=== PATIENT | male | born 1995 | race Caucasian/White ===

== ENCOUNTER 2016-06-30 15:24 | Emergency (ER) | payer OTHER ==
[2016-06-30] MEDS ORDERED: KETOROLAC 30 MG/ML VIAL (J1885) As Ordered ONE (15:44)
[2016-06-30] MEDS ORDERED: ONDANSETRON 4MG/2ML VIAL (J2405) As Ordered ONE (15:44)
[2016-06-30] MEDS ORDERED: MORPHINE 4 MG/ML 1ML SYRINGE As Ordered ONE (15:44)
[2016-06-30 16:01] LABS: BASO % 0.5 % (0.0-1.0); LARGE UNSTAINED CELL # 0.2 K/mm3 (0.0-0.4); LARGE UNSTAINED CELL % 3.5 % (0.0-4.0); LYMPH # 1.6 K/mm3 (1.5-6.5); LYMPH % 28.6 % (24.0-44.0); MEAN CORPUSCULAR HEMOGLOBIN 27.3 pg (27.0-33.0); MEAN CORPUSCULAR HGB CONC 32.7 g/dl (32.0-36.5); MEAN CORPUSCULAR VOLUME 83.5 fl (80.0-96.0); MONO # 0.4 K/mm3 (0.0-0.8); MONO % 7.2 % (0.0-5.0); NEUTROPHILS # 3.2 K/mm3 (1.8-7.7); NEUTROPHILS % 59.1 % (36.0-66.0); PLATELET COUNT, AUTOMATED 150 k/mm3 (150-450); RED CELL DISTRIBUTION WIDTH 12.1 % (11.5-14.5); WHITE BLOOD COUNT 5.4 K/mm3 (4.0-10.0)
--- NOTE | 2016-06-30 16:24 | REP ---
CT abdomen pelvis without IV and oral contrast: There are no comparisons. There is no hydronephrosis. No renal, ureteral or bladder calculi. There is no perinephric stranding. The visualized lung dominguez are unremarkable. The unenhanced hepatic parenchyma, gallbladder, pancreas and spleen are unremarkable. The adrenals, abdominal aorta and bowel are unremarkable. The mesentery is unremarkable. Pelvis: The appendix cannot be identified, however there is no pericecal inflammation or abscess. There is no ascites or adenopathy. The pelvic bowel loops are unremarkable. The bladder is unremarkable. Impression: There is no obstructive uropathy. Otherwise, negative CT of the abdomen and pelvis. Signed by Nabil Krishnan MD 06/30/2016 04:16 P
[2016-06-30] MEDS ORDERED: MORPHINE 2 MG/ML 1ML SYRINGE As Ordered ONE (17:04)
[2016-06-30 17:11] LABS: ALBUMIN 3.2 GM/DL (3.2-5.2); ALBUMIN/GLOBULIN RATIO 1.14 (1.00-1.93); ALKALINE PHOSPHATASE 68 U/L (45-117); ALT/SGPT 33 U/L (12-78); AMYLASE 30 U/L (25-115); ANION GAP 8 MEQ/L (8-16); AST/SGOT 25 U/L (15-37); BILIRUBIN,DIRECT < 0.1 MG/DL (0.0-0.2); BILIRUBIN,TOTAL 0.3 MG/DL (0.2-1.0); BLOOD UREA NITROGEN 15 MG/DL (7-18); CALCIUM LEVEL 7.9 MG/DL (8.5-10.1); CARBON DIOXIDE LEVEL 24 MEQ/L (21-32); CHLORIDE LEVEL 110 MEQ/L (98-107); CREATININE FOR GFR 0.89 MG/DL (0.70-1.30); GLUCOSE, FASTING 77 MG/DL (70-105); POTASSIUM SERUM 3.9 MEQ/L (3.5-5.1); SODIUM LEVEL 142 MEQ/L (136-145)
--- NOTE | 2016-06-30 19:19 | EDDOCDS ---
Physician Documentation [facility] Name: Frank Hilliard Age: 21 yrs Sex: Male : 1995 Arrival Date: 06/30/2016 Time: 15:24 Bed 18 [facility] Disposition: 06/30/16 18:43 Discharged to Home/Self Care. Impression: Abdominal and pelvic pain. - Condition is Stable. - Discharge Instructions: Abdominal Pain, Adult. - Prescriptions for Naprosyn 500 mg Oral Tablet - take 1 tablet by ORAL route 2 times per day take with food; 30 tablet. Zofran 4 mg Oral Tablet - take 1 tablet by ORAL route 4 times per day As needed; 10 tablet. - Medication Reconciliation, Local Pharmacy Hours form. - Follow up: [facility] [place]; When: 2 - 3 days; Reason: Recheck today's complaints, Continuance of care. - Problem is an ongoing problem. - Symptoms have improved. Historical: - Allergies: no known allergies; - Home Meds: 1. nausea medication Unknown Unknown prn pt unsure of medicaiton name (Last dose: 06/29/2016 22:00) 2. pre workout Unknown Unknown pt uses before workouts. - PMHx: none; - PSHx: none; - Social history: Smoking status: Patient states former smoker of tobacco. No barriers to communication noted, The patient speaks fluent Kinyarwanda. - Family history: No immediate family members are acutely ill. - : The pt / caregiver states he / she is not on anticoagulants. Home medication list is obtained from the patient. - Exposure Risk Screening:: None identified. Vital Signs: 06/30 15:33 BP 118 / 60; Pulse 72; Resp 17; Temp 98.9(TE); Pulse Ox 97% ; Weight 77.11 kg / 170 lbs mb9 (R); Height 5 ft. 10 in. (177.80 cm); Pain 10/10; 16:40 Pain 6/10; mb9 17:40 Pain 4/10; mb9 19:10 BP 107 / 54 (auto/); mb9 19:12 Pulse 58 MON; Resp 18; Temp 96.8(O); Pulse Ox 96% ; mb9 15:33 Body Mass Index 24.39 (77.11 kg, 177.80 cm) mb9 MDM: 15:40 Ondansetron 4 mg IVP once ordered. ke 15:40 ketorolac 30 mg IVP once ordered. ke 15:40 IV Saline Lock ordered. ke 15:40 Undress patient appropriately for examination ordered. ke 15:40 morphine 4 mg IVP once ordered. ke 15:42 Amylase Ordered. EDMS 15:42 Basic Metabolic Profile Ordered. EDMS 15:42 CBC with Diff Ordered. EDMS 15:42 Lipase Ordered. EDMS 15:42 Liver Profile Ordered. EDMS 15:42 Urinalysis Ordered. EDMS 15:42 Urine Culture Ordered. EDMS 15:43 CT ABD & PELVIS: No Contrast Ordered. EDMS 15:43 NOTHING BY MOUTH+DIET ordered. EDMS 16:17 Financial registration complete. zo 16:18 [facility] Payment Agreement was scanned into [employer] and attached to record. zo 16:58 CBC with Diff Reviewed. ke 16:58 CT ABD & PELVIS: No Contrast Reviewed. ke 16:59 morphine 2 mg IVP once ordered. ke 16:59 NS 0.9% 1000 ml IV at bolus once ordered. ke 17:39 Basic Metabolic Profile Reviewed. ke 17:39 Liver Profile Reviewed. ke 17:39 Amylase Reviewed. ke 17:39 Lipase Reviewed. ke 18:11 Urinalysis Reviewed. ke Administered Medications: 15:56 Drug: Ondansetron 4 mg [ondansetron HCl 2 mg/mL intravenous solution (2 mL)] Route: mb9 IVP; Site: left antecubital; 17:41 Follow up: Response: Nausea is resolved mb9 15:56 Drug: ketorolac 30 mg [ketorolac 30 mg/mL (1 mL) injection solution (1 mL)] Route: IVP; mb9 Site: left antecubital; 16:40 Follow up: Response: Pain is decreased mb9 15:56 Drug: morphine 4 mg [morphine 4 mg/mL intravenous cartridge (1 mL)] Route: IVP; Site: mb9 left antecubital; 16:40 Follow up: Pain 6/10 Adult; Response: Confirmed pt not driving.; Pain is decreased mb9 17:10 Drug: morphine 2 mg [morphine 2 mg/mL intravenous cartridge (1 mL)] Route: IVP; Site: mb9 left antecubital; 17:40 Follow up: Pain 4/10 Adult; Response: Confirmed pt not driving.; Pain is decreased mb9 17:11 Drug: NS 0.9% 1000 ml [sodium chloride 0.9 % intravenous solution] Route: IV; Rate: mb9 bolus; Site: left antecubital; 17:39 Follow up: IV Intake: 1000ml mb9 Signatures: Dispatcher [employer] EDFranklin Miller, MANAGER PROCESS MANAGER PROCESS Sunita Colon MichaelRN RN mb9 The chart was reviewed and I authenticate all verbal orders and agree with the evaluation and treatment provided.Corrections: (The following items were deleted from the chart) 17:40 16:59 Straight cath ordered. jeff wheat9 Attachments: 16:18 [facility] Payment Agreement jovanni MTDD
--- NOTE | 2016-06-30 19:20 | EDDOCDS ---
Nurse's Notes [facility] Name: Frank Arminda Age: 21 yrs Sex: Male : 1995 Arrival Date: 06/30/2016 Time: 15:24 Bed 18 Private MD: WIROBERTO [place] Diagnosis: Abdominal and pelvic pain Presentation: 06/30 15:27 Presenting complaint: EMS states: "Nausea and vomiting since Sunday. They sent him mb9 here to rule out appendicitis. He is Tender to even mild palpation". Risk factors: the patient reports not having a history of previous torsion. Care prior to arrival: Medications administered prior to arrival: 4 mg zofran. 15:27 Acuity: LILIAM Level 3 mb9 15:32 Suicide/Homicide risk assessment- the patient denies having any suicidal and/or mb9 homicidal ideations and does not present with any other emotional, behavioral or mental health complaints. Status: The patient is an active duty customer service specialist. Transition of care: patient was received from a primary care office; [facility]. 15:32 Method Of Arrival: Ambulance mb9 15:34 Adult Sepsis Screening: The patient does not have new or worsening altered mentation. mb9 Patient's respiratory rate is less than 22. Systolic blood pressure is greater than 100. Patient has a qSOFA score of 0- Negative Sepsis Screen. Triage Assessment: 15:36 General: Appears uncomfortable. Pain: Location: right lower quadrant Pain currently is mb9 10 out of 10 on a pain scale. Pt Declines HIV testing. The patient is triaged at the bedside. See Assessment in Nurses Notes section of ED record. Respiratory: Airway is patent Respiratory effort is even, unlabored. GI: Abdomen is flat, non- distended Abd is soft X 4 quads Abd is tender to palpation X 4 quads. Reports diarrhea, nausea, vomiting. Historical: - Allergies: no known allergies; - Home Meds: 1. nausea medication Unknown Unknown prn pt unsure of medicaiton name (Last dose: 06/29/2016 22:00) 2. pre workout Unknown Unknown pt uses before workouts. - PMHx: none; - PSHx: none; - Social history: Smoking status: Patient states former smoker of tobacco. No barriers to communication noted, The patient speaks fluent Stateless. - Family history: No immediate family members are acutely ill. - : The pt / caregiver states he / she is not on anticoagulants. Home medication list is obtained from the patient. - Exposure Risk Screening:: None identified. Screenin:12 Screening information is obtained from the patient. Fall risk: No risks identified. mb9 Assistance ADL's: requires no assistance with activities of daily living. Abuse/DV Screen: The patient / caregiver reports he/she is: not in a situation that causes fear, pain or injury. Nutritional screening: No deficits noted. Advance Directives: There is no active DNR order. home support is adequate. Assessment: 16:44 Reassessment: Patient states symptoms have not improved. General: Appears mb9 uncomfortable. Pain: Location: abdomen Pain currently is 6 out of 10 on a pain scale. Respiratory: Airway is patent Respiratory effort is even, unlabored. GI: Abdomen is flat. 19:15 Reassessment: Patient appears in no apparent distress at this time. Patient states mb9 symptoms have improved. Adult Sepsis Screening: The patient does not have new or worsening altered mentation. Patient's respiratory rate is less than 22. Systolic blood pressure is greater than 100. Patient has a qSOFA score of 0- Negative Sepsis Screen. General: Appears in no apparent distress. Pain: Denies pain. Respiratory: Airway is patent Respiratory effort is even, unlabored. Vital Signs: 15:33 BP 118 / 60; Pulse 72; Resp 17; Temp 98.9(TE); Pulse Ox 97% ; Weight 77.11 kg (R); mb9 Height 5 ft. 10 in. (177.80 cm); Pain 10/10; 16:40 Pain 6/10; mb9 17:40 Pain 4/10; mb9 19:10 BP 107 / 54 (auto/); mb9 19:12 Pulse 58 MON; Resp 18; Temp 96.8(O); Pulse Ox 96% ; mb9 15:33 Body Mass Index 24.39 (77.11 kg, 177.80 cm) mb9 Vitals: 15:33 Log In Time N/A - ambulance arrival. mb9 ED Course: 15:25 Patient visited by Josephine Chaves, Military Nurse. lbd 15:25 [facility], Cat Villafana is Private Physician. lbd 15:25 Patient moved to Waiting lbd 15:25 Patient moved to 18 lbd 15:27 Franklin Marie FNP is [facility]. ke 15:27 Patient visited by Franklin Marie FNP. ke 15:27 Patient visited by Franklin Marie FNP. ke 15:31 Triage Initiated mb9 15:49 Patient visited by Franklin Marie FNP. ke 15:53 Amylase Sent. ld5 15:53 Basic Metabolic Profile Sent. ld5 15:53 CBC with Diff Sent. ld5 15:53 Lipase Sent. ld5 15:53 Liver Profile Sent. ld5 15:53 Labs drawn. (by ED staff). Sent per order to lab. ld5 15:53 Maintain field IV. Dressing intact. Good blood return noted. Site clean & dry. Gauge & mb9 site: 20 gauge left ac. 16:18 [facility] Payment Agreement was scanned into [employer] and attached to record. zo 16:20 Patient name changed from Frank\\S\\\\S\\Arminda\\S\\ to Frank\\S\\ \\S\\[place]. EDMS 16:23 Patient visited by Franklin Marie FNP. ke 16:45 CT ABD & PELVIS: No Contrast Returned. EDMS 16:58 Patient visited by Franklin Marie FNP. ke 17:39 Patient visited by Franklin Marie FNP. ke 18:00 Patient visited by Franklin Marie FNP. ke 18:43 [facility], Cat Villafana is Referral Physician. ke 19:12 The patient / caregiver is instructed regarding the plan of care and ED course. mb9 19:17 Discontinued IV lock intact, bleeding controlled, pressure dressing applied, No mb9 redness/swelling at site. No procedures done that require assistance. Administered Medications: 15:56 Drug: Ondansetron 4 mg [ondansetron HCl 2 mg/mL intravenous solution (2 mL)] Route: mb9 IVP; Site: left antecubital; 17:41 Follow up: Response: Nausea is resolved mb9 15:56 Drug: ketorolac 30 mg [ketorolac 30 mg/mL (1 mL) injection solution (1 mL)] Route: IVP; mb9 Site: left antecubital; 16:40 Follow up: Response: Pain is decreased mb9 15:56 Drug: morphine 4 mg [morphine 4 mg/mL intravenous cartridge (1 mL)] Route: IVP; Site: mb9 left antecubital; 16:40 Follow up: Pain 6/10 Adult; Response: Confirmed pt not driving.; Pain is decreased mb9 17:10 Drug: morphine 2 mg [morphine 2 mg/mL intravenous cartridge (1 mL)] Route: IVP; Site: mb9 left antecubital; 17:40 Follow up: Pain 4/10 Adult; Response: Confirmed pt not driving.; Pain is decreased mb9 17:11 Drug: NS 0.9% 1000 ml [sodium chloride 0.9 % intravenous solution] Route: IV; Rate: mb9 bolus; Site: left antecubital; 17:39 Follow up: IV Intake: 1000ml mb9 Intake: 17:39 IV: 1000.00ml; Total: 1000.00ml. mb9 Order Results: Lab Order: Amylase; SPEC' 06/30/16 16:40 Test: AMYLASE; Value: 30; Range: 25-115; Units: U/L; Status: F Lab Order: Basic Metabolic Profile; SPEC' 06/30/16 16:40 Test: GLUCOSE, FASTING; Value: 77; Range: 70-105; Units: MG/DL; Status: F Test: BLOOD UREA NITROGEN; Value: 15; Range: 7-18; Units: MG/DL; Status: F Test: CREATININE FOR GFR; Value: 0.89; Range: 0.70-1.30; Units: MG/DL; Status: F Test: SODIUM LEVEL; Value: 142; Range: 136-145; Units: MEQ/L; Status: F Test: POTASSIUM SERUM; Value: 3.9; Range: 3.5-5.1; Units: MEQ/L; Status: F Test: CHLORIDE LEVEL; Value: 110; Range: 98-107; Abnormal: Above high normal; Units: MEQ/L; Status: F Test: CARBON DIOXIDE LEVEL; Value: 24; Range: 21-32; Units: MEQ/L; Status: F Test: ANION GAP; Value: 8; Range: 8-16; Units: MEQ/L; Status: F Test: CALCIUM LEVEL; Value: 7.9; Range: 8.5-10.1; Abnormal: Below low normal; Units: MG/DL; Status: F Lab Order: CBC with Diff; SPEC'M 02/10/17 15:50 Test: WHITE BLOOD COUNT; Value: 5.4; Range: 4.0-10.0; Units: K/mm3; Status: F Test: RED BLOOD COUNT; Value: 4.82; Range: 4.30-6.10; Units: M/mm3; Status: F Test: HEMOGLOBIN; Value: 13.2; Range: 14.0-18.0; Abnormal: Below low normal; Units: g/dl; Status: F Test: HEMATOCRIT; Value: 40.3; Range: 42.0-52.0; Abnormal: Below low normal; Units: %; Status: F Test: MEAN CORPUSCULAR VOLUME; Value: 83.5; Range: 80.0-96.0; Units: fl; Status: F Test: MEAN CORPUSCULAR HEMOGLOBIN; Value: 27.3; Range: 27.0-33.0; Units: pg; Status: F Test: MEAN CORPUSCULAR HGB CONC; Value: 32.7; Range: 32.0-36.5; Units: g/dl; Status: F Test: RED CELL DISTRIBUTION WIDTH; Value: 12.1; Range: 11.5-14.5; Units: %; Status: F Test: PLATELET COUNT, AUTOMATED; Value: 150; Range: 150-450; Units: k/mm3; Status: F Test: NEUTROPHILS %; Value: 59.1; Range: 36.0-66.0; Units: %; Status: F Test: LYMPH %; Value: 28.6; Range: 24.0-44.0; Units: %; Status: F Test: MONO %; Value: 7.2; Range: 0.0-5.0; Abnormal: Above high normal; Units: %; Status: F Test: EOS %; Value: 1.0; Range: 0.0-3.0; Units: %; Status: F Test: BASO %; Value: 0.5; Range: 0.0-1.0; Units: %; Status: F Test: LARGE UNSTAINED CELL %; Value: 3.5; Range: 0.0-4.0; Units: %; Status: F Test: NEUTROPHILS #; Value: 3.2; Range: 1.8-7.7; Units: K/mm3; Status: F Test: LYMPH #; Value: 1.6; Range: 1.5-6.5; Units: K/mm3; Status: F Test: MONO #; Value: 0.4; Range: 0.0-0.8; Units: K/mm3; Status: F Test: EOS #; Value: 0.0; Range: 0.0-0.50; Units: K/mm3; Status: F Test: BASO #; Value: 0.0; Range: 0.0-0.2; Units: K/mm3; Status: F Test: LARGE UNSTAINED CELL #; Value: 0.2; Range: 0.0-0.4; Units: K/mm3; Status: F Lab Order: Lipase; [facility] 06/30/16 16:40 Test: LIPASE; Value: 94; Range: 73-393; Units: U/L; Status: F Lab Order: Liver Profile; [facility] 06/30/16 16:40 Test: AST/SGOT; Value: 25; Range: 15-37; Units: U/L; Status: F Test: ALT/SGPT; Value: 33; Range: 12-78; Units: U/L; Status: F Test: ALKALINE PHOSPHATASE; Value: 68; Range: 45-117; Units: U/L; Status: F Test: BILIRUBIN,TOTAL; Value: 0.3; Range: 0.2-1.0; Units: MG/DL; Status: F Test: BILIRUBIN,DIRECT; Value: < 0.1; Range: 0.0-0.2; Units: MG/DL; Status: F Test: TOTAL PROTEIN; Value: 6.0; Range: 6.4-8.2; Abnormal: Below low normal; Units: GM/DL; Status: F Test: ALBUMIN; Value: 3.2; Range: 3.2-5.2; Units: GM/DL; Status: F Test: ALBUMIN/GLOBULIN RATIO; Value: 1.14; Range: 1.00-1.93; Status: F Lab Order: Urinalysis; [facility] 06/30/16 17:36 Test: APPEARANCE, URINE; Value: CLEAR; Range: CLEAR; Status: F Test: COLOR, URINE; Value: YELLOW; Range: YELLOW; Status: F Test: PH,URINE; Value: 6.0; Range: 5.0-9.0; Units: UNITS; Status: F Test: SPECIFIC GRAVITY URINE AUTO; Value: 1.028; Range: 1.002-1.035; Status: F Test: PROTEIN, URINE AUTO; Value: NEGATIVE; Range: NEGATIVE; Units: mg/dL; Status: F Test: GLUCOSE, URINE (UA) AUTO; Value: NEGATIVE; Range: NEGATIVE; Units: mg/dL; Status: F Test: KETONE, URINE AUTO; Value: TRACE; Range: NEGATIVE; Abnormal: Above high normal; Units: mg/dL; Status: F Test: UROBILINOGEN, URINE AUTO; Value: 0.2; Range: 0.0-2.0; Units: mg/dL; Status: F Test: BILIRUBIN, URINE AUTO; Value: NEGATIVE; Range: NEGATIVE; Status: F Test: NITRITE, URINE AUTO; Value: NEGATIVE; Range: NEGATIVE; Status: F Test: LEUKOCYTE ESTERASE, URINE AUTO; Value: NEGATIVE; Range: NEGATIVE; Status: F Test: BLOOD, URINE BLOOD; Value: NEGATIVE; Range: NEGATIVE; Status: F Test: WBC, URINE AUTO; Value: 1; Range: 0-3; Units: /HPF; Status: F Test: RBC, URINE AUTO; Value: 1; Range: 0-3; Units: /HPF; Status: F Test: BACTERIA, URINE AUTO; Value: NEGATIVE; Range: NEGATIVE; Status: F Test: SQUAMOUS EPITHELIAL CELL UR AU; Value: 0; Range: 0-6; Units: /HPF; Status: F Test: MUCUS, URINE; Value: MODERATE; Range: NEGATIVE; Status: F Test: HYALINE CAST, URINE AUTO; Value: 0; Range: 0-1; Units: /LPF; Status: F Radiology Order: CT ABD & PELVIS: No Contrast Test: CT ABD & PELVIS: No Contrast REASON FOR EXAMINATION: Renal colic; CT abdomen pelvis without IV and oral contrast:; ; There are no comparisons.; ; There is no hydronephrosis. No renal, ureteral or bladder calculi. There is no; perinephric stranding.; ; The visualized lung dominguez are unremarkable.; ; The unenhanced hepatic parenchyma, gallbladder, pancreas and spleen are; unremarkable.; ; The adrenals, abdominal aorta and bowel are unremarkable. The mesentery is; unremarkable.; ; Pelvis:; ; The appendix cannot be identified, however there is no pericecal inflammation or; abscess. There is no ascites or adenopathy. The pelvic bowel loops are; unremarkable. The bladder is unremarkable.; ; Impression:; ; There is no obstructive uropathy.; ; Otherwise, negative CT of the abdomen and pelvis.; ; ; Signed by; Nabil Krishnan MD 06/30/2016 04:16 P; Outcome: 18:43 Discharge ordered by Provider. jeff 19:17 Discharge Assessment: Patient awake, alert and oriented x 3. No cognitive and/or mb9 functional deficits noted. Patient verbalized understanding of disposition instructions. patient administered narcotics - no. The following High Risk Discharge criteria are identified: None. Discharged to home ambulatory. Condition: good Condition: stable Condition: improved. Discharge instructions given to patient, Instructed on discharge instructions, follow up and referral plans. medication usage, Demonstrated understanding of instructions, medications, Pt was receptive of discharge instructions/ teaching. CT Study completed. Property :Personal belongings accompany Pt. 19:19 Patient left the ED. mb9 Signatures: Dispatcher [employer] EDMS Josephine Chaves, Military Nurse Unit lbd Franklin Marie, NUMERICAL CONTROL OPERATOR NUMERICAL CONTROL OPERATOR Sunita Colon Laura,RN RN ld5 Jean Artis,RN RN mb9 MTDLinda
--- NOTE | 2016-07-02 20:19 | EDDOCDS ---
Nurse's Notes [facility] Name: Frank Arminda Age: 21 yrs Sex: Male : 1995 Arrival Date: 06/30/2016 Time: 15:24 Bed 18 Private MD: MDROBERTO [place] Diagnosis: Abdominal and pelvic pain Presentation: 06/30 15:27 Presenting complaint: EMS states: "Nausea and vomiting since Sunday. They sent him mb9 here to rule out appendicitis. He is Tender to even mild palpation". Risk factors: the patient reports not having a history of previous torsion. Care prior to arrival: Medications administered prior to arrival: 4 mg zofran. 15:27 Acuity: LILIAM Level 3 mb9 15:32 Suicide/Homicide risk assessment- the patient denies having any suicidal and/or mb9 homicidal ideations and does not present with any other emotional, behavioral or mental health complaints. Status: The patient is an active duty equipment service associate. Transition of care: patient was received from a primary care office; [facility]. 15:32 Method Of Arrival: Ambulance mb9 15:34 Adult Sepsis Screening: The patient does not have new or worsening altered mentation. mb9 Patient's respiratory rate is less than 22. Systolic blood pressure is greater than 100. Patient has a qSOFA score of 0- Negative Sepsis Screen. Triage Assessment: 15:36 General: Appears uncomfortable. Pain: Location: right lower quadrant Pain currently is mb9 10 out of 10 on a pain scale. Pt Declines HIV testing. The patient is triaged at the bedside. See Assessment in Nurses Notes section of ED record. Respiratory: Airway is patent Respiratory effort is even, unlabored. GI: Abdomen is flat, non- distended Abd is soft X 4 quads Abd is tender to palpation X 4 quads. Reports diarrhea, nausea, vomiting. Historical: - Allergies: no known allergies; - Home Meds: 1. nausea medication Unknown Unknown prn pt unsure of medicaiton name (Last dose: 06/29/2016 22:00) 2. pre workout Unknown Unknown pt uses before workouts. - PMHx: none; - PSHx: none; - Social history: Smoking status: Patient states former smoker of tobacco. No barriers to communication noted, The patient speaks fluent Haitian. - Family history: No immediate family members are acutely ill. - : The pt / caregiver states he / she is not on anticoagulants. Home medication list is obtained from the patient. - Exposure Risk Screening:: None identified. Screenin:12 Screening information is obtained from the patient. Fall risk: No risks identified. mb9 Assistance ADL's: requires no assistance with activities of daily living. Abuse/DV Screen: The patient / caregiver reports he/she is: not in a situation that causes fear, pain or injury. Nutritional screening: No deficits noted. Advance Directives: There is no active DNR order. home support is adequate. Assessment: 16:44 Reassessment: Patient states symptoms have not improved. General: Appears mb9 uncomfortable. Pain: Location: abdomen Pain currently is 6 out of 10 on a pain scale. Respiratory: Airway is patent Respiratory effort is even, unlabored. GI: Abdomen is flat. 19:15 Reassessment: Patient appears in no apparent distress at this time. Patient states mb9 symptoms have improved. Adult Sepsis Screening: The patient does not have new or worsening altered mentation. Patient's respiratory rate is less than 22. Systolic blood pressure is greater than 100. Patient has a qSOFA score of 0- Negative Sepsis Screen. General: Appears in no apparent distress. Pain: Denies pain. Respiratory: Airway is patent Respiratory effort is even, unlabored. Vital Signs: 15:33 BP 118 / 60; Pulse 72; Resp 17; Temp 98.9(TE); Pulse Ox 97% ; Weight 77.11 kg (R); mb9 Height 5 ft. 10 in. (177.80 cm); Pain 10/10; 16:40 Pain 6/10; mb9 17:40 Pain 4/10; mb9 19:10 BP 107 / 54 (auto/); mb9 19:12 Pulse 58 MON; Resp 18; Temp 96.8(O); Pulse Ox 96% ; mb9 15:33 Body Mass Index 24.39 (77.11 kg, 177.80 cm) mb9 Vitals: 15:33 Log In Time N/A - ambulance arrival. mb9 ED Course: 15:25 Patient visited by Josephine Chaves, Sponsorship Manager. lbd 15:25 [facility], Cat Villafana is Private Physician. lbd 15:25 Patient moved to Waiting lbd 15:25 Patient moved to 18 lbd 15:27 Franklin Marie F[facility]. ke 15:27 Patient visited by Franklin Marie FNP. ke 15:27 Patient visited by Franklin Marie FNP. ke 15:31 Triage Initiated mb9 15:49 Patient visited by Franklin Marie FNP. ke 15:53 Amylase Sent. ld5 15:53 Basic Metabolic Profile Sent. ld5 15:53 CBC with Diff Sent. ld5 15:53 Lipase Sent. ld5 15:53 Liver Profile Sent. ld5 15:53 Labs drawn. (by ED staff). Sent per order to lab. ld5 15:53 Maintain field IV. Dressing intact. Good blood return noted. Site clean & dry. Gauge & mb9 site: 20 gauge left ac. 16:18 [place] [place] was scanned into [employer] and attached to record. zo 16:20 Patient name changed from Frank\\S\\\\S\\Arminda\\S\\ to Frank\\S\\ \\S\\[place]. EDMS 16:23 Patient visited by Franklin Marie FNP. ke 16:45 CT ABD & PELVIS: No Contrast Returned. EDMS 16:58 Patient visited by Franklin Marie FNP. ke 17:39 Patient visited by Franklin Marie FNP. ke 18:00 Patient visited by Franklin Marie FNP. ke 18:43 [facility], Cat Villafana is Referral Physician. ke 19:12 The patient / caregiver is instructed regarding the plan of care and ED course. mb9 19:17 Discontinued IV lock intact, bleeding controlled, pressure dressing applied, No mb9 redness/swelling at site. No procedures done that require assistance. 07/01 10:32 T-Sheet-- Draft Copy was scanned into [employer] and attached to record. gb 17:34 PCR was scanned into [employer] and attached to record. gb Administered Medications: 06/30 15:56 Drug: Ondansetron 4 mg [ondansetron HCl 2 mg/mL intravenous solution (2 mL)] Route: mb9 IVP; Site: left antecubital; 17:41 Follow up: Response: Nausea is resolved mb9 15:56 Drug: ketorolac 30 mg [ketorolac 30 mg/mL (1 mL) injection solution (1 mL)] Route: IVP; mb9 Site: left antecubital; 16:40 Follow up: Response: Pain is decreased mb9 15:56 Drug: morphine 4 mg [morphine 4 mg/mL intravenous cartridge (1 mL)] Route: IVP; Site: mb9 left antecubital; 16:40 Follow up: Pain 6/10 Adult; Response: Confirmed pt not driving.; Pain is decreased mb9 17:10 Drug: morphine 2 mg [morphine 2 mg/mL intravenous cartridge (1 mL)] Route: IVP; Site: mb9 left antecubital; 17:40 Follow up: Pain 4/10 Adult; Response: Confirmed pt not driving.; Pain is decreased mb9 17:11 Drug: NS 0.9% 1000 ml [sodium chloride 0.9 % intravenous solution] Route: IV; Rate: mb9 bolus; Site: left antecubital; 17:39 Follow up: IV Intake: 1000ml mb9 Intake: 17:39 IV: 1000.00ml; Total: 1000.00ml. mb9 Order Results: Lab Order: Amylase; SPEC'M 06/30/16 16:40 Test: AMYLASE; Value: 30; Range: 25-115; Units: U/L; Status: F Lab Order: Basic Metabolic Profile; SPEC'M 06/30/16 16:40 Test: GLUCOSE, FASTING; Value: 77; Range: 70-105; Units: MG/DL; Status: F Test: BLOOD UREA NITROGEN; Value: 15; Range: 7-18; Units: MG/DL; Status: F Test: CREATININE FOR GFR; Value: 0.89; Range: 0.70-1.30; Units: MG/DL; Status: F Test: SODIUM LEVEL; Value: 142; Range: 136-145; Units: MEQ/L; Status: F Test: POTASSIUM SERUM; Value: 3.9; Range: 3.5-5.1; Units: MEQ/L; Status: F Test: CHLORIDE LEVEL; Value: 110; Range: 98-107; Abnormal: Above high normal; Units: MEQ/L; Status: F Test: CARBON DIOXIDE LEVEL; Value: 24; Range: 21-32; Units: MEQ/L; Status: F Test: ANION GAP; Value: 8; Range: 8-16; Units: MEQ/L; Status: F Test: CALCIUM LEVEL; Value: 7.9; Range: 8.5-10.1; Abnormal: Below low normal; Units: MG/DL; Status: F Lab Order: CBC with Diff; SPEC'M 06/30/16 15:50 Test: WHITE BLOOD COUNT; Value: 5.4; Range: 4.0-10.0; Units: K/mm3; Status: F Test: RED BLOOD COUNT; Value: 4.82; Range: 4.30-6.10; Units: M/mm3; Status: F Test: HEMOGLOBIN; Value: 13.2; Range: 14.0-18.0; Abnormal: Below low normal; Units: g/dl; Status: F Test: HEMATOCRIT; Value: 40.3; Range: 42.0-52.0; Abnormal: Below low normal; Units: %; Status: F Test: MEAN CORPUSCULAR VOLUME; Value: 83.5; Range: 80.0-96.0; Units: fl; Status: F Test: MEAN CORPUSCULAR HEMOGLOBIN; Value: 27.3; Range: 27.0-33.0; Units: pg; Status: F Test: MEAN CORPUSCULAR HGB CONC; Value: 32.7; Range: 32.0-36.5; Units: g/dl; Status: F Test: RED CELL DISTRIBUTION WIDTH; Value: 12.1; Range: 11.5-14.5; Units: %; Status: F Test: PLATELET COUNT, AUTOMATED; Value: 150; Range: 150-450; Units: k/mm3; Status: F Test: NEUTROPHILS %; Value: 59.1; Range: 36.0-66.0; Units: %; Status: F Test: LYMPH %; Value: 28.6; Range: 24.0-44.0; Units: %; Status: F Test: MONO %; Value: 7.2; Range: 0.0-5.0; Abnormal: Above high normal; Units: %; Status: F Test: EOS %; Value: 1.0; Range: 0.0-3.0; Units: %; Status: F Test: BASO %; Value: 0.5; Range: 0.0-1.0; Units: %; Status: F Test: LARGE UNSTAINED CELL %; Value: 3.5; Range: 0.0-4.0; Units: %; Status: F Test: NEUTROPHILS #; Value: 3.2; Range: 1.8-7.7; Units: K/mm3; Status: F Test: LYMPH #; Value: 1.6; Range: 1.5-6.5; Units: K/mm3; Status: F Test: MONO #; Value: 0.4; Range: 0.0-0.8; Units: K/mm3; Status: F Test: EOS #; Value: 0.0; Range: 0.0-0.50; Units: K/mm3; Status: F Test: BASO #; Value: 0.0; Range: 0.0-0.2; Units: K/mm3; Status: F Test: LARGE UNSTAINED CELL #; Value: 0.2; Range: 0.0-0.4; Units: K/mm3; Status: F Lab Order: Lipase; [facility] 06/30/16 16:40 Test: LIPASE; Value: 94; Range: 73-393; Units: U/L; Status: F Lab Order: Liver Profile; [facility] 06/30/16 16:40 Test: AST/SGOT; Value: 25; Range: 15-37; Units: U/L; Status: F Test: ALT/SGPT; Value: 33; Range: 12-78; Units: U/L; Status: F Test: ALKALINE PHOSPHATASE; Value: 68; Range: 45-117; Units: U/L; Status: F Test: BILIRUBIN,TOTAL; Value: 0.3; Range: 0.2-1.0; Units: MG/DL; Status: F Test: BILIRUBIN,DIRECT; Value: < 0.1; Range: 0.0-0.2; Units: MG/DL; Status: F Test: TOTAL PROTEIN; Value: 6.0; Range: 6.4-8.2; Abnormal: Below low normal; Units: GM/DL; Status: F Test: ALBUMIN; Value: 3.2; Range: 3.2-5.2; Units: GM/DL; Status: F Test: ALBUMIN/GLOBULIN RATIO; Value: 1.14; Range: 1.00-1.93; Status: F Lab Order: Urinalysis; [facility] 06/30/16 17:36 Test: APPEARANCE, URINE; Value: CLEAR; Range: CLEAR; Status: F Test: COLOR, URINE; Value: YELLOW; Range: YELLOW; Status: F Test: PH,URINE; Value: 6.0; Range: 5.0-9.0; Units: UNITS; Status: F Test: SPECIFIC GRAVITY URINE AUTO; Value: 1.028; Range: 1.002-1.035; Status: F Test: PROTEIN, URINE AUTO; Value: NEGATIVE; Range: NEGATIVE; Units: mg/dL; Status: F Test: GLUCOSE, URINE (UA) AUTO; Value: NEGATIVE; Range: NEGATIVE; Units: mg/dL; Status: F Test: KETONE, URINE AUTO; Value: TRACE; Range: NEGATIVE; Abnormal: Above high normal; Units: mg/dL; Status: F Test: UROBILINOGEN, URINE AUTO; Value: 0.2; Range: 0.0-2.0; Units: mg/dL; Status: F Test: BILIRUBIN, URINE AUTO; Value: NEGATIVE; Range: NEGATIVE; Status: F Test: NITRITE, URINE AUTO; Value: NEGATIVE; Range: NEGATIVE; Status: F Test: LEUKOCYTE ESTERASE, URINE AUTO; Value: NEGATIVE; Range: NEGATIVE; Status: F Test: BLOOD, URINE BLOOD; Value: NEGATIVE; Range: NEGATIVE; Status: F Test: WBC, URINE AUTO; Value: 1; Range: 0-3; Units: /HPF; Status: F Test: RBC, URINE AUTO; Value: 1; Range: 0-3; Units: /HPF; Status: F Test: BACTERIA, URINE AUTO; Value: NEGATIVE; Range: NEGATIVE; Status: F Test: SQUAMOUS EPITHELIAL CELL UR AU; Value: 0; Range: 0-6; Units: /HPF; Status: F Test: MUCUS, URINE; Value: MODERATE; Range: NEGATIVE; Status: F Test: HYALINE CAST, URINE AUTO; Value: 0; Range: 0-1; Units: /LPF; Status: F Lab Order: Urine Culture; SPEC'M 06/30/16 17:36 Test: URINE CULTURE; Value: <EXTERNAL COMMENT eCWMed> FULL REPORT IN LAB NOTES (eCW and Medent).; Status: F Test: URINE CULTURE; Value: URINE CULTURE RESULT NO GROWTH; Status: F Radiology Order: CT ABD & PELVIS: No Contrast Test: CT ABD & PELVIS: No Contrast REASON FOR EXAMINATION: Renal colic; CT abdomen pelvis without IV and oral contrast:; ; There are no comparisons.; ; There is no hydronephrosis. No renal, ureteral or bladder calculi. There is no; perinephric stranding.; ; The visualized lung dominguez are unremarkable.; ; The unenhanced hepatic parenchyma, gallbladder, pancreas and spleen are; unremarkable.; ; The adrenals, abdominal aorta and bowel are unremarkable. The mesentery is; unremarkable.; ; Pelvis:; ; The appendix cannot be identified, however there is no pericecal inflammation or; abscess. There is no ascites or adenopathy. The pelvic bowel loops are; unremarkable. The bladder is unremarkable.; ; Impression:; ; There is no obstructive uropathy.; ; Otherwise, negative CT of the abdomen and pelvis.; ; ; Signed by; Nabil Krishnan MD 06/30/2016 04:16 P; Outcome: 18:43 Discharge ordered by Provider. ke 19:17 Discharge Assessment: Patient awake, alert and oriented x 3. No cognitive and/or mb9 functional deficits noted. Patient verbalized understanding of disposition instructions. patient administered narcotics - no. The following High Risk Discharge criteria are identified: None. Discharged to home ambulatory. Condition: good Condition: stable Condition: improved. Discharge instructions given to patient, Instructed on discharge instructions, follow up and referral plans. medication usage, Demonstrated understanding of instructions, medications, Pt was receptive of discharge instructions/ teaching. CT Study completed. Property :Personal belongings accompany Pt. 19:19 Patient left the ED. mb9 Signatures: Dispatcher [employer] EDMS Josephine Chaves, Sponsorship Manager Unit lbd Darlene Monson, Mao Reg Franklin Spencer, WEIGHTS AND MEASURES SEALER WEIGHTS AND MEASURES SEALER Sunita Colon Laura,RN RN ld5 Jean Artis,RN RN mb9 Chart Complete MTDD
--- NOTE | 2016-07-02 20:19 | EDDOCDS ---
Physician Documentation [facility] Name: Frank Hilliard Age: 21 yrs Sex: Male : 1995 Arrival Date: 06/30/2016 Time: 15:24 Bed 18 [facility] Disposition: 06/30/16 18:43 Discharged to Home/Self Care. Impression: Abdominal and pelvic pain. - Condition is Stable. - Discharge Instructions: Abdominal Pain, Adult. - Prescriptions for Naprosyn 500 mg Oral Tablet - take 1 tablet by ORAL route 2 times per day take with food; 30 tablet. Zofran 4 mg Oral Tablet - take 1 tablet by ORAL route 4 times per day As needed; 10 tablet. - Medication Reconciliation, Local Pharmacy Hours form. - Follow up: [facility]; When: 2 - 3 days; Reason: Recheck today's complaints, Continuance of care. - Problem is an ongoing problem. - Symptoms have improved. Historical: - Allergies: no known allergies; - Home Meds: 1. nausea medication Unknown Unknown prn pt unsure of medicaiton name (Last dose: 06/29/2016 22:00) 2. pre workout Unknown Unknown pt uses before workouts. - PMHx: none; - PSHx: none; - Social history: Smoking status: Patient states former smoker of tobacco. No barriers to communication noted, The patient speaks fluent Occitan. - Family history: No immediate family members are acutely ill. - : The pt / caregiver states he / she is not on anticoagulants. Home medication list is obtained from the patient. - Exposure Risk Screening:: None identified. Vital Signs: 06/30 15:33 BP 118 / 60; Pulse 72; Resp 17; Temp 98.9(TE); Pulse Ox 97% ; Weight 77.11 kg / 170 lbs mb9 (R); Height 5 ft. 10 in. (177.80 cm); Pain 10/10; 16:40 Pain 6/10; mb9 17:40 Pain 4/10; mb9 19:10 BP 107 / 54 (auto/); mb9 19:12 Pulse 58 MON; Resp 18; Temp 96.8(O); Pulse Ox 96% ; mb9 15:33 Body Mass Index 24.39 (77.11 kg, 177.80 cm) mb9 MDM: 15:40 Ondansetron 4 mg IVP once ordered. ke 15:40 ketorolac 30 mg IVP once ordered. ke 15:40 IV Saline Lock ordered. ke 15:40 Undress patient appropriately for examination ordered. ke 15:40 morphine 4 mg IVP once ordered. ke 15:42 Amylase Ordered. EDMS 15:42 Basic Metabolic Profile Ordered. EDMS 15:42 CBC with Diff Ordered. EDMS 15:42 Lipase Ordered. EDMS 15:42 Liver Profile Ordered. EDMS 15:42 Urinalysis Ordered. EDMS 15:42 Urine Culture Ordered. EDMS 15:43 CT ABD & PELVIS: No Contrast Ordered. EDMS 15:43 NOTHING BY MOUTH+DIET ordered. EDMS 16:17 Financial registration complete. zo 16:18 [facility] [place] was scanned into [employer] and attached to record. zo 16:58 CBC with Diff Reviewed. ke 16:58 CT ABD & PELVIS: No Contrast Reviewed. ke 16:59 morphine 2 mg IVP once ordered. ke 16:59 NS 0.9% 1000 ml IV at bolus once ordered. ke 17:39 Basic Metabolic Profile Reviewed. ke 17:39 Liver Profile Reviewed. ke 17:39 Amylase Reviewed. ke 17:39 Lipase Reviewed. ke 18:11 Urinalysis Reviewed. ke 07/01 10:32 T-Sheet-- Draft Copy was scanned into [employer] and attached to record. gb 17:34 PCR was scanned into [employer] and attached to record. gb Administered Medications: 06/30 15:56 Drug: Ondansetron 4 mg [ondansetron HCl 2 mg/mL intravenous solution (2 mL)] Route: mb9 IVP; Site: left antecubital; 17:41 Follow up: Response: Nausea is resolved mb9 15:56 Drug: ketorolac 30 mg [ketorolac 30 mg/mL (1 mL) injection solution (1 mL)] Route: IVP; mb9 Site: left antecubital; 16:40 Follow up: Response: Pain is decreased mb9 15:56 Drug: morphine 4 mg [morphine 4 mg/mL intravenous cartridge (1 mL)] Route: IVP; Site: mb9 left antecubital; 16:40 Follow up: Pain 6/10 Adult; Response: Confirmed pt not driving.; Pain is decreased mb9 17:10 Drug: morphine 2 mg [morphine 2 mg/mL intravenous cartridge (1 mL)] Route: IVP; Site: mb9 left antecubital; 17:40 Follow up: Pain 4/10 Adult; Response: Confirmed pt not driving.; Pain is decreased mb9 17:11 Drug: NS 0.9% 1000 ml [sodium chloride 0.9 % intravenous solution] Route: IV; Rate: mb9 bolus; Site: left antecubital; 17:39 Follow up: IV Intake: 1000ml mb9 Signatures: Dispatcher [employer] EDMS Darlene Monson, Reg Reg gb Franklin Mraie, DESKTOP SUPPORT SPECIALIST DESKTOP SUPPORT SPECIALIST Sunita Colon Michael,RN RN mb9 The chart was reviewed and I authenticate all verbal orders and agree with the evaluation and treatment provided.Corrections: (The following items were deleted from the chart) 17:40 16:59 Straight cath ordered. jeff [email or web address] Attachments: 16:18 [facility] [facility] [place] zo 07/01 10:32 T-Sheet-- Draft Copy Chart Complete DUARTE
--- NOTE | 2016-07-02 20:19 | EDDOCDS ---
Physician Documentation [facility] Name: Frank Hilliard Age: 21 yrs Sex: Male : 1995 Arrival Date: 06/30/2016 Time: 15:24 Bed 18 Private [facility] Disposition: 06/30/16 18:43 Discharged to Home/Self Care. Impression: Abdominal and pelvic pain. - Condition is Stable. - Discharge Instructions: Abdominal Pain, Adult. - Prescriptions for Naprosyn 500 mg Oral Tablet - take 1 tablet by ORAL route 2 times per day take with food; 30 tablet. Zofran 4 mg Oral Tablet - take 1 tablet by ORAL route 4 times per day As needed; 10 tablet. - Medication Reconciliation, Local Pharmacy Hours form. - Follow up: [facility] [place]; When: 2 - 3 days; Reason: Recheck today's complaints, Continuance of care. - Problem is an ongoing problem. - Symptoms have improved. Historical: - Allergies: no known allergies; - Home Meds: 1. nausea medication Unknown Unknown prn pt unsure of medicaiton name (Last dose: 06/29/2016 22:00) 2. pre workout Unknown Unknown pt uses before workouts. - PMHx: none; - PSHx: none; - Social history: Smoking status: Patient states former smoker of tobacco. No barriers to communication noted, The patient speaks fluent Tajik. - Family history: No immediate family members are acutely ill. - : The pt / caregiver states he / she is not on anticoagulants. Home medication list is obtained from the patient. - Exposure Risk Screening:: None identified. Vital Signs: 06/30 15:33 BP 118 / 60; Pulse 72; Resp 17; Temp 98.9(TE); Pulse Ox 97% ; Weight 77.11 kg / 170 lbs mb9 (R); Height 5 ft. 10 in. (177.80 cm); Pain 10/10; 16:40 Pain 6/10; mb9 17:40 Pain 4/10; mb9 19:10 BP 107 / 54 (auto/); mb9 19:12 Pulse 58 MON; Resp 18; Temp 96.8(O); Pulse Ox 96% ; mb9 15:33 Body Mass Index 24.39 (77.11 kg, 177.80 cm) mb9 MDM: 15:40 Ondansetron 4 mg IVP once ordered. ke 15:40 ketorolac 30 mg IVP once ordered. ke 15:40 IV Saline Lock ordered. ke 15:40 Undress patient appropriately for examination ordered. ke 15:40 morphine 4 mg IVP once ordered. ke 15:42 Amylase Ordered. EDMS 15:42 Basic Metabolic Profile Ordered. EDMS 15:42 CBC with Diff Ordered. EDMS 15:42 Lipase Ordered. EDMS 15:42 Liver Profile Ordered. EDMS 15:42 Urinalysis Ordered. EDMS 15:42 Urine Culture Ordered. EDMS 15:43 CT ABD & PELVIS: No Contrast Ordered. EDMS 15:43 NOTHING BY MOUTH+DIET ordered. EDMS 16:17 Financial registration complete. zo 16:18 [facility] [place] was scanned into [employer] and attached to record. zo 16:58 CBC with Diff Reviewed. ke 16:58 CT ABD & PELVIS: No Contrast Reviewed. ke 16:59 morphine 2 mg IVP once ordered. ke 16:59 NS 0.9% 1000 ml IV at bolus once ordered. ke 17:39 Basic Metabolic Profile Reviewed. ke 17:39 Liver Profile Reviewed. ke 17:39 Amylase Reviewed. ke 17:39 Lipase Reviewed. ke 18:11 Urinalysis Reviewed. ke 07/01 10:32 T-Sheet-- Draft Copy was scanned into [employer] and attached to record. gb 17:34 PCR was scanned into [employer] and attached to record. gb Administered Medications: 06/30 15:56 Drug: Ondansetron 4 mg [ondansetron HCl 2 mg/mL intravenous solution (2 mL)] Route: mb9 IVP; Site: left antecubital; 17:41 Follow up: Response: Nausea is resolved mb9 15:56 Drug: ketorolac 30 mg [ketorolac 30 mg/mL (1 mL) injection solution (1 mL)] Route: IVP; mb9 Site: left antecubital; 16:40 Follow up: Response: Pain is decreased mb9 15:56 Drug: morphine 4 mg [morphine 4 mg/mL intravenous cartridge (1 mL)] Route: IVP; Site: mb9 left antecubital; 16:40 Follow up: Pain 6/10 Adult; Response: Confirmed pt not driving.; Pain is decreased mb9 17:10 Drug: morphine 2 mg [morphine 2 mg/mL intravenous cartridge (1 mL)] Route: IVP; Site: mb9 left antecubital; 17:40 Follow up: Pain 4/10 Adult; Response: Confirmed pt not driving.; Pain is decreased mb9 17:11 Drug: NS 0.9% 1000 ml [sodium chloride 0.9 % intravenous solution] Route: IV; Rate: mb9 bolus; Site: left antecubital; 17:39 Follow up: IV Intake: 1000ml mb9 Signatures: Dispatcher [employer] EDMS Darlene Monson, Reg Reg gb Franklin Marie, MEDICAL ATTENDANT MEDICAL ATTENDANT Sunita Colon Michael,RN RN mb9 The chart was reviewed and I authenticate all verbal orders and agree with the evaluation and treatment provided.Corrections: (The following items were deleted from the chart) 17:40 16:59 Straight cath ordered. jeff [email or web address] Attachments: 16:18 [facility] [place] Agreement zo 07/01 10:32 T-Sheet-- Draft Copy Chart Complete DUARTE
== END 2016-06-30 19:19 | disposition home or self-care (01) ==
LOC: M ED 15:24
DX: R10.31 Right lower quadrant pain (principal); Z87.891 Personal history of nicotine dependence
CPT/HCPCS: 36415; 74176; 80048; 80076; 81001; 82150; 83690; 85025; 87086; 96374; 96375; 96376; 99284; J1885; J2405

== ENCOUNTER 2016-12-20 21:30 | Emergency (ER) | payer OTHER, SELFPAY ==
[~2016-12-20] VITALS: Ht 177.8 cm; Wt 81.8 kg
[2016-12-21 00:08] VITALS: BP 111/63
--- NOTE | 2016-12-21 01:08 | REP ---
Clinical: Trauma. Pain. Technique: AP, lateral, bilateral oblique views of the right foot. Findings: There is a minimally angulated fracture involving the metaphysis of the fifth proximal phalanx. No subcutaneous emphysema or radiodense foreign body. No other fracture or dislocation identified. Remainder examination appears normal for age. Impression: Mild laterally angulated fracture at the base of the fifth toe proximal phalanx. Signed by Gerry Nayak MD 12/21/2016 01:00 A
== END 2016-12-21 00:10 | disposition home or self-care (01) ==
LOC: M ED 21:30
DX: S92.501A Displaced unspecified fracture of right lesser toe(s), initial encounter for closed fracture (principal); F17.210 Nicotine dependence, cigarettes, uncomplicated; X58.XXXA Exposure to other specified factors, initial encounter; Y92.39 Other specified sports and athletic area as the place of occurrence of the external cause; Y93.72 Activity, wrestling; Y99.9 Unspecified external cause status

== ENCOUNTER 2017-01-24 21:43 | Emergency (ER) | payer SELFPAY ==
[~2017-01-24] VITALS: Ht 177.8 cm; Wt 84.5 kg
[2017-01-25] MEDS ORDERED: OXYCODONE/APAP 5MG/325MG(BULK FOR ED) 1 TABLET PO ONE (00:15)
[2017-01-25] MEDS ORDERED: PERC5TAB12 PO (00:17)
[2017-01-25 00:20] VITALS: BP 134/70
--- NOTE | 2017-01-25 08:22 | REP ---
RIGHT HAND SERIES: Four views. HISTORY: Pain and swelling after trauma. FINDINGS: There is an obliquely oriented transverse fracture through the proximal third metacarpal. There is slight overriding and dorsal displacement of the distal fragment. Lateral view shows diffuse dorsal swelling. IMPRESSION: Obliquely oriented slightly overriding fracture of the long finger metacarpal. Signed by Lexa Yan MD 01/25/2017 08:26 A
== END 2017-01-25 00:33 | disposition home or self-care (01) ==
LOC: M ED 21:43
DX: S62.302A Unspecified fracture of third metacarpal bone, right hand, initial encounter for closed fracture (principal); W22.8XXA Striking against or struck by other objects, initial encounter; Y92.410 Unspecified street and highway as the place of occurrence of the external cause; Y93.89 Activity, other specified; Y99.8 Other external cause status